=== PATIENT | male | born 1965 | race Caucasian/White ===

== ENCOUNTER 2019-05-11 08:05 | Observation (INO) ==
[2019-05-11] MEDS ORDERED: NiCARDipine HCL INJ 2.5 MG/ML 10 ML AMP ONE (08:29)
[2019-05-11] MEDS ORDERED: HEPARIN (PORCINE) 1000 UNIT/ML 10 ML (CATH LAB USE ONLY) ONE ×2 (08:29→10:16)
[2019-05-11] MEDS ORDERED: MIDAZOLAM HCL 1 MG/ML 2ML VIAL ONE (08:30)
[2019-05-11] MEDS ORDERED: fentaNYL citrate 100 MCG/2 ML VIAL ONE (08:30)
[2019-05-11] MEDS ORDERED: NITROGLYCERIN/D5W 100MCG/ML 20ML SYR ONE (08:32)
--- NOTE | 2019-05-11 08:44 | History & Physical Bridge Note ---
Date of Service May 11, 2019 History & Physical Bridge Note I have examined the patient, reviewed the History & Physical and in the interval since the performance of the History & Physical I have noted the following changes of clinical significance: no changes noted I have explained the risk, benefit and intent of the procedure and the pontential for a cath based intervention if necessary and the patient is willing to proceed.
[2019-05-11] MEDS ORDERED: SODIUM CHLORIDE 0.9% 1000ML 1,000 ML IV SCH ×2 (08:45→14:00)
--- NOTE | 2019-05-11 10:58 | Cardiac Catheterization ---
Date of Service May 11, 2019 Cardiac Cath Report Cardiac Cath Report Procedure: 1. Left heart catheterization 2. Coronary angiography 3. Left ventriculogram History: This is a 53-year-old male patient who has noticed walk-through angina and was sent for an exercise stress echocardiogram that was abnormal. Procedure summary: After informed consent was obtained the patient was taken to the cardiac catheterization lab where he was prepped and draped in usual manner for a right radial approach. Preformed 5 Lao diagnostic catheters were utilized for the coronary angiograms. A 5 Lao pigtail catheter was utilized for the left ventriculogram. Following the procedure the patient underwent coronary intervention. ACC data: Start time 8:56 AM End time 9:47 AM Opening aortic pressure 105/62 LV pressure 112/15 Closing aortic pressure 111/67 Sedation 1 mg intravenous Versed IV fluid 50 cc normal saline Contrast 115 cc Optiray Fluoroscopy time 4.4 minutes Radiation 1040 mGy DAP 108 mGy/m Codominant system AUC score 9 Coronary angiography: Under fluoroscopy the proximal LAD and left circumflex arteries are calcified. Selective injections into the left coronary artery revealed the left main trunk to be widely patent. The left circumflex artery is large there is a small ramus branch from the left main trunk. The first OM from the left circumflex is small to medium in size. The second OM is large and supplies a large portion of the lateral myocardium. The third OM is large in size and supplies the posterior myocardium and septum. Before the takeoff of the third marginal branch there is a 30% narrowing in the left circumflex artery. The LAD extends around the apex of the heart. It gives off 3 medium size diagonal branches. The proximal and midportion of the LAD is diffusely diseased with several areas of significant stenoses the worst of which is at the first septal rehabilitation director and is estimated to be 90%. Injections into the right coronary artery revealed to be codominant with the left circumflex artery. In the midportion of the right coronary artery there is a 50 to 60% long stenoses with the remainder the artery having luminal irregularities but it being widely patent. Left ventriculogram: The left ventricle is of normal size with normal systolic function. The mitral valve is competent. The aortic root and ascending aorta have normal morphology and diameter. Summary: The patient has significant two-vessel coronary artery disease with the LAD having the worst area of stenosis. The LAD is calcified and diffusely diseased in its proximal mid segment with diffuse 70% narrowing and a 90% narrowing at the takeoff of the first septal rehabilitation director. The right coronary artery in its mid segment has a 50 to 60% narrowing. Recommendations: The recommendations are for coronary intervention on the LAD and possibly the right coronary artery after FFR.
[2019-05-11] MEDS ORDERED: ADENOSINE IV SOLN 3 MG/ML 20 ML VIAL IV ONE (11:24)
[2019-05-11] MEDS ORDERED: ATROPINE SULFATE 0.1 MG/ML 10ML SYR IV ONE (11:29)
[2019-05-11] MEDS ORDERED: ONDANSETRON INJ 2 MG/ML 2 ML VIAL ONE (11:30)
[2019-05-11] MEDS ORDERED: TICAGRELOR 90 MG TAB PO ONE (11:43)
--- NOTE | 2019-05-11 13:32 | Post Anesthesia Assessment ---
Date of Service May 11, 2019 Post Sedation Assessment Vital Signs Temp Pulse Pulse Resp BP BP Pulse Ox 05/11/19 12:15 97.5 F L 66 16 110/74 98 05/11/19 12:00 69 14 113/89 97 05/11/19 11:45 73 14 117/82 93 05/11/19 08:14 98.4 F 56 L 16 116/74 96 Recovery Score Activity: Moves 4 extremities Respiration: Deep Breath/Cough Circulation: +/-20% PreAnes Value Consciousness: Fully Awake Oxygen Saturation: > 92% On Room Air Post Anesthesia Score: 10 Discharge Sedation Level of Care: Fast Track Phase II Post Sedation Plan On clinical assessment, the patient appears to have tolerated the sedation without complications. Patient is recovering as anticipated. Patient will continue to be monitored by nursing and may be discharged when sedation discharge criteria are met per below protocol. Upon Completions of procedure up to 15 minutes continue every 5 minute vital signs and the P.A.R. score; then discharge to a Phase I or Fast Track to Phase II per the following guidelines: * Discharge Patient to appropriate Phase II area if PAR is 8 or greater or return to pre- procedure baseline. The post - procedure orders will be as directed. * If PAR score is less than 8 or not return to pre-procedure baseline then patient will follow Phase I monitoring till PAR is reached for Phase II. The Phase I may be done in procedure room or may call to secure a Phase I area. * If naloxone or flumazenil are used for reversal, hold in Phase I for continued monitoring from when last reversal dose was given for a minimum of 60 minutes or longer pending the nurse and/or physician discretion of patient condition before discharge to Phase II. Please call the Sedation Physician to re-evaluate and complete post-note for discharge to Phase II area. Do NOT discharge from procedure sedation or Phase 1 until post- sedation evaluation note is complete by procedure /sedation MD Sedation Discharge Instructions to be given to the patient at discharge to home.
[2019-05-11] MEDS ORDERED: MoRPHine SULFATE 2 MG/ML CARP IV PRN (13:45)
[2019-05-11] MEDS ORDERED: POLYETHYLENE (MIRALAX) 17 GM PACK PO PRN (13:45)
[2019-05-11] MEDS ORDERED: ONDANSETRON INJ 2 MG/ML 2 ML VIAL IV PRN ×2 (13:45→13:48)
[2019-05-11] MEDS ORDERED: ZOLPIDEM TARTRATE 5 MG TAB PO PRN (13:45)
[2019-05-11] MEDS ORDERED: NITROGLYCERIN SL 0.4 MG/TAB TAB SL PRN (13:45)
[2019-05-11] MEDS ORDERED: ACETAMINOPHEN 325 MG TAB PO PRN ×2 (13:45→13:49)
[2019-05-11] MEDS ORDERED: ALUMINUM/MAGNESIUM SUSP 30 ML UDC PO PRN (13:45)
[2019-05-11] MEDS ORDERED: MAGNESIUM HYDROXIDE SUSP 30 ML UDC PO PRN (13:45)
--- NOTE | 2019-05-11 13:45 | Cardiac Catheterization ---
[facility] Data: Shelter Director Cardiac Status Clinical evaluation leading to the procedure CAD Presenation: Unstable angina Anginal Classification: CCS III Heart Failure: No Cardiogenic Shock within 24 Hours: No Cardiac Arrest within 24 Hours: No Imaging Studies Past 6 Months: Yes Stress Studies Past 6 Months: No Stress Echocardiogram: Yes - Positive Diagnostic Physicians Name: Luis Gillis MD Status: Elective Closure Device Percutaneous Entry Location: Radial Closure Device: Radial Band Recommendations: PCI without planned CABG PCI Indication: + Stress Test and Unstable Angina Lesion Segment Name: proximal to mid LAD Culprit Artery: Yes Stenosis Prior to Rx (%): 90 Chronic Total Occlusion: No IVUS: Yes FFR: No Pre-Procedure MARGARITO Flow: 2 Previously Treated Lesion: No Lesion Complexity: High/C Lesion Length (mm): 40 Thrombus Present: No Bifurcation Lesion: Yes Guidewire Across Lesion: Stenosis Post-Procedure (%): 0 Post-Procedure MARGARITO Flow: 3 Devices(s) Deployed: Yes Yes Intraprocedure Events Significant Disection: No Perforation: No Cardiac Cath Procedure Full Procedure Date May 11, 2019 Pre-Procedure Diagnosis Pre-Procedure Diagnosis: Angina and Positive Stress Test AUC Score AUC Score: 8 Post-Procedure Diagnosis Post-Procedure Diagnosis: Severe CAD and Successful PCI Procedure(s) Performed Procedure(s) Performed: Drug Eluting Stent and IVUS Senior Contracts Administrator Luis Gillis MD Wink Cutter Operator(s) Eileen Mendoza Estimated Blood Loss Estimated Blood Loss: 20 Medication(s) Medication(s): Fentanyl, Heparin, Lidocaine 1%, Nicardipine, Nitroglycerin and Versed Medication(s): Ticagrelor Summary of Findings Indication: Accelerating angina, abnormal stress test Access: 6 Fr slender right radial artery Catheters: EBU 3.5 guide, JR4 guide Findings: For full details of patient's coronary angiography please see cath report dictated by Dr. Romero. Briefly, patient found to have multivessel disease including diffuse, heavily calcified 90% proximal mid LAD disease. Decision to proceed with PCI of LAD and FFR of moderate mid RCA disease. -- PCI -- Antithrombotic therapy: Heparin, ticagrelor Procedure: Left main cannulated with EBU 3.5 guide BMW wire passed across lesion into distal vessel Clinical Interviewer 50 wire placed into first diagonal Proximal to mid LAD dilated with 2.0 and 2.5 balloons with the aid of a guide liner Ostium of first diagonal dilated with 2.0 balloon Mid LAD lesion stented with 2.5 x 22 mm Luis Miguel drug-eluting stent Second drug-eluting stent (2.75 x 26 mm Sheffield) placed from proximal LAD to mid LAD, overlapping proximal aspect of initial stent. Stents post-dilated with 3.0 noncompliant balloon IC vasodilators administered for spasm IVUS revealed well-expanded proximal stent with no apparent edge complication. Post procedure MARGARITO 3 flow, stents well expanded with minimal residual stenosis and no apparent cardiac complications. MARGARITO-3 flow and first and second diagonals. FFR of mid RCA-- RCA cannulated with JR4 guide With cannulation had vagal response requiring atropine and IV fluids BMW wire placed across mid RCA stenosis into distal vessel ACIST FFR catheter placed into latemid RCA Pd/Pa 0.95 Catheter and wire removed. No apparent coronary complications. Arterial Closure: TR band Summary: 1. Successful PCI of proximal to mid LAD with 2 overlapping drug-eluting stents (2.75 x 26, 2.5 x 22 mm Sheffield; postdilated with 3.0 NC). -Angioplasty of ostium of first diagonal with 2.0 balloon 2. Moderate nonobstructive mid RCA stenosis (iFR 0.95). Recommendations: To PCU for continued monitoring Loaded with ticagrelor 180 mg in Shelter Director. Can transition to clopidogrel tomorrow Continue dual-antiplatelet therapy for at least 6 months, consider extended DAPT with overlapping stents Continue statin, and ASCVD risk factor modification Consult cardiac Rehab Hemodynamics Rest Ao:: 105/60/79 Final Ao: 122/65/89 LV: -- Recommendations Recommendations: PCI without planned CABG Specimens Specimens: None Radiation Exposure (mGy) 5209 Contrast (mls) 80 Fluids (cc crystalloids) Fluids (cc crystalloids): 424 Drains Drains: none Anesthesia moderate Procedural Complication(s) None Disposition PCU I attest to the content of the Intraoperative Record and any orders documented therein. Any exceptions are noted below. PG Care Time/CCT Total # of Minutes Spent Total Time Spent with Patient: Total time spent is greater than 50% in coordination of care (as documented) at patient's floor/unit and/or counseling patient:
--- NOTE | 2019-05-11 13:51 | Communication Note ---
Date of Service: May 11, 2019 Patient seen with at bedside status post cardiac cath. States he is feeling well. No complaints at rest. Tolerated procedure very well. Plan: We will observe on telemetry overnight. I will maximize his atorvastatin to 80 mg daily given the significant atherosclerotic burden. We will hold off on further medications at this time given his resting bradycardia and relative hypotension.
[2019-05-11 14:55] LABS: Basophils # (auto) 0.02 K/uL (0-0.2); Basophils % (auto) 0.2 %; Eosinophils # (auto) 0.05 K/uL (0-0.5); Eosinophils % (auto) 0.5 %; Hemoglobin 14.8 g/dL (14.0-18.0); Immature Granulocytes # (auto) 0.01 K/uL (0.00-0.02); Immature Granulocytes % (auto) 0.1 %; Lymphocytes # (auto) 1.31 K/uL (1.2-3.4); Lymphocytes % (auto) 12.9 %; Mean Corpuscular Hemoglobin 33.1 pg (25-34); Mean Corpuscular Hgb Conc 35.2 g/dL (32-36); Mean Platelet Volume 9.9 fL (7.4-10.4); Monocytes # (auto) 0.43 K/uL (0.11-0.59); Monocytes % (auto) 4.2 %; Neutrophils % (auto) 82.1 %; Platelet Count 228 K/uL (130-400); RDW Coefficient of Variation 12.7 % (11.5-14.5); RDW Standard Deviation 43.4 fL (36.4-46.3); Red Blood Count 4.47 M/uL (4.7-6.1); White Blood Count 10.12 K/uL (4.8-10.8)
[2019-05-11 15:06] LABS: BUN Creatinine Ratio 11.7 (10-20); Calcium 8.5 mg/dl (8.5-10.1); Creatinine Clr Calc Pharmacy 85.9 ml/min; Est GFR (African American) 102.7; Est GFR (Non-African American) 88.6; Potassium 4.2 mmol/L (3.5-5.1)
[2019-05-11] MEDS: ATORVASTATIN 40 MG TAB PO SCH (17:34)
[2019-05-11] MEDS: NITROGLYCERIN 2% OINTMENT 30GM TUBE EXT SCH ×3 (17:35→23:26)
[2019-05-11] MEDS ORDERED: TICAGRELOR 90 MG TAB PO SCH (23:00)
[2019-05-12] MEDS: NITROGLYCERIN 2% OINTMENT 30GM TUBE EXT SCH (06:31)
[2019-05-12] MEDS ORDERED: CLOPIDOGREL BISULFATE 300 MG TAB PO ONE (08:00)
[2019-05-12] MEDS: ATORVASTATIN 40 MG TAB PO SCH (08:22)
[2019-05-12] MEDS ORDERED: ASPIRIN 81 MG ECTAB PO SCH ×2 (09:00)
--- NOTE | 2019-05-12 09:23 | Cardiology Progress Note ---
Date of Service May 12, 2019 Assessment & Plan (1) CAD (coronary artery disease): s/p PCI with overlapping NAYELI to proximal LAD nonobstructive disease of the RCA, FFR negative received 2 doses of Brilinta yesterday, transitioned to plavix today, cont asa 81mg atorvastatin increased to 80mg daily restrictions reviewed will d/c to home scheduled to f/u as outpatient with me on 05/24, will keep appt Subjective Pt seen and examined, without complaint. No events overnight. Denies cp, sob, palpitations, lightheadedness or dizziness. tele reviewed: sinus bradycardia without arrhythmia Review of Systems Review of Systems: All systems reviewed & are unremarkable except as noted in HPI & below Physical Exam Physical Exam: General: Awake, alert and oriented x 3. No acute distress. HEENT: Normocephalic, atraumatic. Pupils equal, round and reactive to light and accommodation. Extraocular muscles are intact. Anicteric sclera. Moist mucous membranes. Neck: No JVD. No bruit. Cardiovascular: Regular. Positive S-4. Normal S-1 and S-2. No S-3. No murmurs or rubs. Pulmonary: Clear to auscultation B/L. No rales, rhonchi or wheezing Abdomen: Bowel sounds x 4, soft. No rebound, guarding or tenderness. No organomegaly. Extremities: No clubbing, cyanosis or edema. +2 pedal pulses bilaterally. Skin: Warm and dry. Results & Data Vital Signs (Past 12 Hours) Vital Signs Temp Pulse Pulse Resp BP Pulse Ox 05/12/19 08:00 48 L 05/12/19 07:39 36.8 C 49 L 18 110/70 95 05/12/19 06:31 103/68 05/12/19 03:12 36.6 C 45 L 16 102/62 94 05/11/19 23:27 36.4 C L 54 L 16 94/56 L 95 05/11/19 23:18 48 L
--- NOTE | 2019-05-12 09:32 | Discharge Summary ---
Date of Service May 12, 2019 Admission Exam Per Admitting Provider General: Awake, alert and oriented x 3. No acute distress. HEENT: Normocephalic, atraumatic. Pupils equal, round and reactive to light and accommodation. Extraocular muscles are intact. Anicteric sclera. Moist m ucous membranes. Neck: No JVD. No bruit. Cardiovascular: Regular. Positive S-4. Normal S-1 and S-2. No S-3. No murmurs or rubs. Pulmonary: Clear to auscultation B/L. No rales, rhonchi or wheezing Abdomen: Bowel sounds x 4, soft. No rebound, guarding or tenderness. No organomegaly. Extremities: No clubbing, cyanosis or edema. +2 pedal pulses bilaterally. Skin: Warm and dry. Principal Diagnosis Coronary artery disease Discharge Data Allergies Allergy/AdvReac Type Severity Reaction Status Date / Time No Known Allergies Allergy Unknown Verified 05/11/19 08:23 Procedures Performed Operation Date: 05/11/19 09:00 Actual Procedures p Cath, Left with Cors and Vent - Angel Romero DO s Drug Eluting Stent SGl Vessel - Bandar Gillis MD s Cineradiography w/Routine Exam - Bandar Gillis MD Ordered Studies 05/11/19 06:40 CL Cath Imgs for PACS use only Stat Hospital Course (1) CAD (coronary artery disease): s/p PCI with overlapping NAYELI to proximal LAD nonobstructive disease of the RCA, FFR negative received 2 doses of Brilinta yesterday, transitioned to plavix today, cont asa 81mg atorvastatin increased to 80mg daily restrictions reviewed will d/c to home scheduled to f/u as outpatient with me on 05/24, will keep appt Total Time Total Time Spent Total Time Spent (In Minutes): 40 minutes Discharge Plan Discharge Items Patient Disposition: Home - Self-Care Reason For Visit: CARDIAC CATH Discharge Diagnosis: CAD Activity: Resume your previous activity Bathing: No limitations Sexual Activity: When tolerated Exercise/Sports: Gradually increase as tolerated Driving/Machine Use: No limitations Non-emergency contact: Primary Care Provider Call non-emergency contact if: you have any medication questions Follow-up/Referrals: Srinivas Wan DO [Physician] - PCP,NO [Primary Care Provider] - Diet: Heart Healthy Addtl Attending Provider Instructions: ACTIVITY RECOMMENDATIONS: Excess manipulation of the wrist should be avoided for the next 24-48 hours. * No lifting over 2 pounds (approximately a 1/2 gallon of milk) with the utilized arm for 24 hours. * No strenuous activity such as bowling or tennis for 3 days. * Keep the site of the procedure covered with a bandage for 24 hours. *You may shower the day after the procedure. Do not take a tub bath or submerge the puncture site in water for the next 3 days. *Do not operate any motorized equipment for 3 days. SPECIAL CARE INSTRUCTIONS: The site may be slightly bruised and sore following your procedure. Should any of the following occur, contact the Dr. who performed your procedure. 1. Redness/inflammation, swelling, chills, or fever, or colored drainage at procedure site within 3-7 days after your procedure. 2. Coldness, discoloration, ongoing numbness, severe pain, or swelling. Expect mild tingling of hand and tenderness at the puncture site for up to three days. If this persists beyond three days, or other symptoms develop, notify the Dr. who performed your procedure. BLEEDING: If the procedure site on your wrist begins to bleed, do not panic 1. Place 1 or 2 fingers firmly just slightly above the insertion site to stop the bleeding. You may be able to feel your pulse as you hold pressure. 2. Lift your finger after 5 minutes to see if the bleeding has stopped. 3. Once the bleeding has stopped, gently wipe the wrist area clean with a bandage. * If the bleeding from your wrist does not stop after 10 minutes, or if there is a large amount of bleeding or spurting, call 911 (do not drive yourself to the hospital). SKIN IRRITATION: * You may experience some redness and/or swelling in the area where radiation was administered. If any skin irritation occurs, please contact your family physician. FOLLOW UP VISIT: Keep any scheduled doctor appointments. Pending Studies at Discharge: No Stand-Alone Forms: [employer], Smoking Cessation Medications and DC Order Prescriptions: New atorvastatin 40 mg Tablet 80 mg PO QAM 30 Days Qty: 60 RF: 0 clopidogrel 75 mg Tablet 75 mg PO QAM 30 Days Qty: 30 RF: 0 Continued aspirin [Aspir-81] 81 mg Tablet,Delayed Release (Dr/Ec) 81 mg PO DAILY RF: 0 nitroglycerin [Nitrostat] 0.4 mg Tablet, Sublingual 0.4 mg sublingual CONT PRN (Reason: Chest Pain) RF: 0 Discontinued atorvastatin 20 mg Tablet 20 mg PO DAILY RF: 0 Discharge Orders: Discharge Order (Routine); Ordered 05/12/19 Ordered By: Srinivas Wan Admission Data Admit Date/Time: 05/11/19 10:30 Attending Provider: Angel Romero Admit Provider: Angel Romero Primary Care Provider: [id number]
--- NOTE | 2019-05-12 15:51 | Electrocardiogram Report ---
Test Reason : Blood Pressure : / mmHG Vent. Rate : 049 BPM Atrial Rate : 049 BPM P-R Int : 146 ms QRS Dur : 076 ms QT Int : 434 ms P-R-T Axes : 042 -10 032 degrees QTc Int : 392 ms Sinus bradycardia Septal infarct , age undetermined Abnormal ECG No previous ECGs available Confirmed by Mehrdad Fish ([id number]) on 05/12/2019 3:51:20 PM Referred By: Kash Bryson Confirmed By:Mehrdad Fish
[2019-05-13] MEDS ORDERED: CLOPIDOGREL BISULFATE 75 MG TAB PO SCH (09:00)
== END 2019-05-12 10:25 | disposition home or self-care (01) ==
LOC: 2S 08:05 → CC 08:05